=== PATIENT | male | born 1975 | race Hispanic/Latino ===

== ENCOUNTER 2018-10-02 10:59 | Emergency (ER) | payer BC, OTHER ==
[2018-10-02] MEDS ORDERED: METHYLPREDNISOLONE 125 MG INJ ONE (11:41)
[2018-10-02] MEDS ORDERED: KETOROLAC 30 MG/ML INJ ONE (11:41)
[2018-10-02 11:49] LABS: Absolute Lymphocytes (CBC) 1.9 K/uL (0.7-4.9); Absolute Monocytes 0.6 K/uL (0.1-1.3); Absolute Neutrophil 5.4 K/uL (1.8-8.0); Basophils % 0.5 % (0-1.3); Eosinophils % 2.2 % (0-4.4); Hematocrit 48.1 % (39.6-49.0); Lymphocytes % 23.4 % (15.3-44.8); MPV 9.8 fL (7.6-11.3); Monocytes % 7.8 % (3.3-12.3); RBC Red Blood Cell Count 5.17 M/uL (4.33-5.43)
[2018-10-02 12:00] LABS: BUN Blood Urea Nitrogen 12 mg/dL (7-18); Bicarbonate 26 mmol/L (21-32); Glucose Level 160 mg/dL (74-106); Sodium Level 142 mmol/L (136-145); Uric Acid 4.8 mg/dL (3.5-7.2)
--- NOTE | 2018-10-02 12:06 | RAD REPORT ---
EXAM DESCRIPTION: RAD - Knee Right 3 View - 10/02/2018 11:55 am CLINICAL HISTORY: Nontraumatic right knee pain COMPARISON: None. FINDINGS: No fracture, dislocation or periosteal reaction.No measurable joint effusion. Hardware is in place from prior ACL repair. A small 4 mm intra-articular loose body is seen along the tibial spin e. Several bone densities are present along the anterior margin of the tibial tubercle. This is most likely related to chronic patella tendon injury. Mild congestion or edema is seen in the subcutaneous fatty tissues. No air or foreign body in the sof t tissues. IMPRESSION: No acute bone or joint finding identifiable. Degenerative and postsurgical changes are present including intra-articular loose body and patella te ndon calcinosis.
[2018-10-02] MEDS ORDERED: LIDOCAINE 1% MPF 5 ML VIAL ONE (12:53)
--- NOTE | 2018-10-02 13:16 | ER ---
Nurse's Notes [facility] Name: Amadeo Dubois Age: 43 yrs Sex: Male : 1975 Arrival Date: 10/02/2018 Time: 11:01 Bed 18 Private MD: Diagnosis: Gout;Pain in right knee Presentation: 10/02 11:01 Presenting complaint: Patient states: "I woke up with knee pain on Friday". Pt c/o aa5 right knee pain. Pt also reports intermittent swelling to right knee. Transition of care: patient was not received from another setting of care. Onset of symptoms was September 2018. Risk Assessment: Do you want to hurt yourself or someone else? Patient reports no desire to harm self or others. Initial Sepsis Screen: Does the patient meet any 2 criteria? No. Patient's initial sepsis screen is negative. Does the patient have a suspected source of infection? No. Patient's initial sepsis screen is negative. Care prior to arrival: None. 11:01 Method Of Arrival: Ambulatory aa5 11:01 Acuity: ARIK 3 aa5 Historical: - Allergies: 11:05 No Known Allergies; aa5 - Home Meds: 11:05 None [Active]; aa5 - PMHx: 11:05 None; aa5 - PSHx: 11:05 right knee- ACL; gastric bypass; aa5 - Immunization history:: Flu vaccine status is unknown. - Social history:: Smoking status: Patient uses tobacco products, smokes one-half pack cigarettes per day. - Ebola Screening: : No symptoms or risks identified at this time. Screenin:34 Abuse screen: Denies threats or abuse. Nutritional screening: No deficits noted. em Tuberculosis screening: No symptoms or risk factors identified. Fall Risk None identified. Assessment: 11:40 General: Appears in no apparent distress. comfortable, Behavior is calm, cooperative, em Denies fever, right knee swollen, red and hot to touch. Pain: Complains of pain in right knee Pain currently is 10 out of 10 on a pain scale. Pain began 2-3 days ago. Neuro: Level of Consciousness is awake, alert, obeys commands, Oriented to person, place, time, situation. Cardiovascular: Capillary refill < 3 seconds Patient's skin is warm and dry. Respiratory: Airway is patent Respiratory effort is even, unlabored, Respiratory pattern is regular, symmetrical. Derm: Skin is intact, Skin is pink, warm \\T\\ dry. Musculoskeletal: Range of motion: intact in all extremities. 12:45 Reassessment: Patient appears in no apparent distress at this time. Patient and/or em family updated on plan of care and expected duration. Pain level reassessed. Patient is alert, oriented x 3, equal unlabored respirations, skin warm/dry/pink. rates pain 4/10 Patient states feeling better. Patient states symptoms have improved. 13:49 Reassessment: Patient appears in no apparent distress at this time. Patient and/or em family updated on plan of care and expected duration. Pain level reassessed. Patient is alert, oriented x 3, equal unlabored respirations, skin warm/dry/pink. Patient states feeling better. Patient states symptoms have improved. Vital Signs: 11:06 BP 124 / 65; Pulse 99; Resp 18 S; Temp 98.3(TE); Pulse Ox 99% on R/A; Pain 10/10; aa5 12:18 BP 100 / 64; Pulse 74; Resp 17; Temp 97.9(TE); Pulse Ox 98% on R/A; mh5 ED Course: 11:01 Patient arrived in ED. aa5 11:02 Jose Arredondo MD is Attending Physician. kdr 11:02 Arm band placed on. aa5 11:05 Triage completed. aa5 11:14 Kenny Franco LVN is Primary Nurse. em 11:34 Patient has correct armband on for positive identification. Placed in gown. Bed in low em position. Call light in reach. Adult w/ patient. Pulse ox on. NIBP on. 11:40 Initial lab(s) drawn, by me, sent to lab. Inserted saline lock: 22 gauge in right em antecubital area, using aseptic technique. Blood collected. 11:55 X-ray completed. Portable x-ray completed in exam room. Patient tolerated procedure sw well. 11:56 Knee Right 3 View XRAY In Process Unspecified. EDMS 13:20 Removed 0 ml's of fluid Set up for procedure. Performed by Jose Arredondo MD Dressed em with band aid, Patient tolerated well. 13:47 IV discontinued, intact, bleeding controlled, No redness/swelling at site. Pressure em dressing applied. Administered Medications: 11:56 Drug: TORadol - Ketorolac 15 mg Route: IVP; Site: right antecubital; hb 12:45 Follow up: Response: No adverse reaction; Pain is decreased em 11:56 Drug: SOLU-Medrol 125 mg Route: IVP; Site: right antecubital; hb 12:45 Follow up: Response: No adverse reaction; Pain is decreased em Outcome: 13:15 Discharge ordered by MD. kdr 13:47 Discharged to home ambulatory, with family. em 13:47 Condition: good 13:47 Discharge instructions given to patient, Instructed on discharge instructions, follow up and referral plans. medication usage, Demonstrated understanding of instructions, follow-up care, medications, Prescriptions given X 2. 13:49 Patient left the ED. em Signatures: Dispatcher [employer] EDMS Jose Arredondo MD MD kdr Munoz, Edgar, BLENDING TECHNICIAN BLENDING TECHNICIAN em Farhana Weston RN RN aa5 Livier Flowers Heather, RN RN hb Martinez, Maria [facility] Corrections: (The following items were deleted from the chart) 11:05 11:01 Presenting complaint: Patient states: "I woke up with knee pain on Friday" aa5 aa5 11:20 11:01 Presenting complaint: Patient states: "I woke up with knee pain on Friday". Pt aa5 c/o right knee pain. Pt also reports intermittent swelling to right knee. aa5 11: 11:01 Acuity: ARIK 4 aa5 aa5
--- NOTE | 2018-10-02 13:16 | EDPHYS ---
Physician Documentation [facility] Name: Amadeo Dubois Age: 43 yrs Sex: Male : 1975 Arrival Date: 10/02/2018 Time: 11:01 Bed 18 Private MD: ED Physician Jose Arredondo HPI: 10/02 13:31 This 43 yrs old Male presents to ER via Ambulatory with complaints of Knee kdr Pain. 12:16 The patient presents with decreased range of motion, pain, that is acute, swelling, kdr tenderness. The complaints affect the lateral aspect of right knee, medial aspect of right knee and right knee. Context: The problem was sustained at home, Went to bed Friday night without any problems and when he awoke Friday, he had pain in the right knee. Onset: The symptoms/episode began/occurred gradually, Friday. Modifying factors: The symptoms are alleviated by remaining still, the symptoms are aggravated by movement, weight bearing, bending knee. Associated signs and symptoms: The patient has no apparent associated signs or symptoms. Treatment prior to arrival includes: no previous treatment, over the counter medications, Tylenol. Severity of symptoms: At their worst the symptoms were mild, moderate, just prior to arrival, in the emergency department the symptoms are unchanged. The patient has not experienced similar symptoms in the past. The patient has not recently seen a physician. Historical: - Allergies: 11:05 No Known Allergies; aa5 - Home Meds: 11:05 None [Active]; aa5 - PMHx: 11:05 None; aa5 - PSHx: 11:05 right knee- ACL; gastric bypass; aa5 - Immunization history:: Flu vaccine status is unknown. - Social history:: Smoking status: Patient uses tobacco products, smokes one-half pack cigarettes per day. - Ebola Screening: : No symptoms or risks identified at this time. ROS: 12:16 Constitutional: Negative for fever, chills, and weight loss, Eyes: Negative for injury, kdr pain, redness, and discharge, Abdomen/GI: Negative for abdominal pain, nausea, vomiting, diarrhea, and constipation, : Negative for injury, bleeding, discharge, and swelling, Skin: Negative for injury, rash, and discoloration, Neuro: Negative for headache, weakness, numbness, tingling, and seizure activity. Psych: Negative for depression, anxiety, suicide ideation, homicidal ideation, and hallucinations, Allergy/Immunology: Negative for hives, rash, and allergies. 12:16 MS/extremity: Positive for decreased range of motion, erythema, pain, swelling, tenderness, warmth, of the lateral aspect of right knee, medial aspect of right knee and right knee, Negative for injury or acute deformity, abrasion, bite, contusion, deformity, laceration, paresthesias, puncture, rash, tingling. Exam: 12:16 Constitutional: This is a well developed, well nourished patient who is awake, alert, kdr and in no acute distress. Head/Face: Normocephalic, atraumatic. Eyes: Pupils equal round and reactive to light, extra-ocular motions intact. Lids and lashes normal. Conjunctiva and sclera are non-icteric and not injected. Cornea within normal limits. Periorbital areas with no swelling, redness, or edema. Neck: Trachea midline, no thyromegaly or masses palpated, and no cervical lymphadenopathy. Supple, full range of motion without nuchal rigidity, or vertebral point tenderness. No Meningismus. Chest/axilla: Normal chest wall appearance and motion. Nontender with no deformity. No lesions are appreciated. Cardiovascular: Regular rate and rhythm with a normal S1 and S2. No gallops, murmurs, or rubs. Normal PMI, no JVD. No pulse deficits. Back: No spinal tenderness. No costovertebral tenderness. Full range of motion. 12:16 Musculoskeletal/extremity: Extremities: grossly normal except: noted in the lateral aspect of right knee, medial aspect of right knee and right knee: decreased ROM, pain, swelling, tenderness. Vital Signs: 11:06 BP 124 / 65; Pulse 99; Resp 18 S; Temp 98.3(TE); Pulse Ox 99% on R/A; Pain 10/10; aa5 12:18 BP 100 / 64; Pulse 74; Resp 17; Temp 97.9(TE); Pulse Ox 98% on R/A; mh5 MDM: 12:35 Data reviewed: vital signs, nurses notes, lab test result(s), radiologic studies. kdr Counseling: I had a detailed discussion with the patient and/or guardian regarding: the historical points, exam findings, and any diagnostic results supporting the discharge/admit diagnosis, lab results, radiology results, the need for outpatient follow up. ED course: The patient WBC = 8 and ESR = 1; unlikely to be septic joint however, the patient has no personal physician to follow-up with. Will tap joint to be certain that it is not septic. 13:15 Patient medically screened. [facility] 10/02 11:19 Order name: CBC with Diff; Complete Time: 12:30 [facility] 10/02 11:19 Order name: Chem 7; Complete Time: 12:08 [facility] 10/02 11:19 Order name: Uric Acid; Complete Time: 12:08 [facility] 10/02 11:19 Order name: ESR; Complete Time: 12:30 [facility] 10/02 11:19 Order name: Knee Right 3 View XRAY; Complete Time: 12:30 [facility] Administered Medications: 11:56 Drug: TORadol - Ketorolac 15 mg Route: IVP; Site: right antecubital; hb 12:45 Follow up: Response: No adverse reaction; Pain is decreased em 11:56 Drug: SOLU-Medrol 125 mg Route: IVP; Site: right antecubital; hb 12:45 Follow up: Response: No adverse reaction; Pain is decreased em Disposition: 10/02/18 13:15 Discharged to Home. Impression: Gout, Pain in right knee. - Condition is Stable. - Discharge Instructions: Gout, [id number], Knee Pain, [id number]-Foep. - Prescriptions for indomethacin 50 mg Oral capsule - take 1 capsule by ORAL route 3 times per day with food; 15 capsule. Prednisone 20 mg Oral Tablet - take 2 tablet by ORAL route once daily for 5 days; 10 tablet. - Medication Reconciliation Form, Thank You Letter, Work release form form. - Follow up: Private Physician; When: 2 - 3 days; Reason: If symptoms return, Further diagnostic work-up, Recheck today's complaints, Continuance of care, Re-evaluation by your physician. - Problem is new. - Symptoms have improved. Signatures: Dispatcher [employer] EDJose Shrestha MD MD [facility] Kenny Franco, RADIATION THERAPY TECHNICIAN RADIATION THERAPY TECHNICIAN Farhana Kaplan, RN RN aa5 Arin Garcia RN RN hb Corrections: (The following items were deleted from the chart) 13:49 13:15 10/02/2018 13:15 Discharged to Home. Impression: Gout; Pain in right knee. em Condition is Stable. Forms are Medication Reconciliation Form, Thank You Letter, Antibiotic Education, Prescription Opioid Use. Follow up: Private Physician; When: 2 - 3 days; Reason: If symptoms return, Further diagnostic work-up, Recheck today's complaints, Continuance of care, Re-evaluation by your physician. Problem is new. Symptoms have improved. kdr
[2018-10-02 13:59] VITALS: BP 100/64; TEMP 97.9; O2SAT 98
== END 2018-10-02 13:49 | disposition home or self-care (01) ==
LOC: ER 10:59
DX: M10.9 Gout, unspecified (principal); F17.210 Nicotine dependence, cigarettes, uncomplicated
CPT/HCPCS: 36415; 80048; 84550; 85025; 85652; 96374; 96375; 99284; J2930

== ENCOUNTER 2021-03-25 14:49 | Observation (INO) | payer BC ==
[2021-03-25] MEDS ORDERED: ASPIRIN 81 MG CHEWABLE TABLET ONE (15:34)
[2021-03-25] MEDS ORDERED: NITROGLYCERIN 0.4 MG/TAB SL ONE (15:34)
[2021-03-25 15:45] LABS: Hematocrit 51.9 % (39.6-49.0); Lymphocytes % 30.3 % (15.3-44.8); MPV 8.5 fL (7.6-11.3); Protime INR 1.01; RBC Red Blood Cell Count 5.61 M/uL (4.33-5.43)
--- NOTE | 2021-03-25 15:53 | RAD REPORT ---
EXAM DESCRIPTION: RAD - Chest Single View - 03/25/2021 3:45 pm CLINICAL HISTORY: CHEST PAIN COMPARISON: February 2013 TECHNIQUE: AP portable chest image was obtained 03/25/2021 3:45 pm . FINDINGS: No focal lung parenchymal process. Interstitial pattern is not clearly different when adju sting for film technique and inspiratory differences. Heart and vasculature are normal. No measurable pleural effusion and no pneumothorax. No acute bony abnormality seen. No acute aortic findings suspe cted. IMPRESSION: No acute cardiopulmonary process. No significant change from comparison study.
[2021-03-25 16:00] LABS: ALT/SGPT 48 U/L (12-78); AST/SGOT 21 U/L (15-37); Albumin 3.9 g/dL (3.4-5.0); BUN Blood Urea Nitrogen 9 mg/dL (7-18); Bicarbonate 26 mmol/L (21-32); Bilirubin Direct 0.3 mg/dL (0-0.2); Glucose Level 201 mg/dL (74-106); Magnesium 2.3 mg/dL (1.8-2.4); Potassium 3.9 mmol/L (3.5-5.1); Sodium Level 140 mmol/L (136-145)
[2021-03-25 16:04] LABS: Alkaline Phosphatase 105 U/L (45-117); NT PRO-BNP 31 pg/mL (<125); Protein, Total 7.5 g/dL (6.4-8.2); Troponin (Emerg Dept Use Only) < 0.02 ng/mL (0.0-0.045)
--- NOTE | 2021-03-25 16:57 | EDPHYS ---
Physician Documentation [facility] Name: Amadeo Dubois Age: 46 yrs Sex: Male : 1975 Arrival Date: 03/25/2021 Time: 14:50 Bed 7 Private MD: ED Physician Madi Vu HPI: 03/25 15:27 This 46 yrs old Male presents to ER via Ambulatory with complaints of Chest pm1 Pain. 15:27 The patient or guardian reports chest pain that is located primarily in the mid-sternal pm1 area. Onset: today, at 12:00. The pain radiates to the left shoulder. Associated signs and symptoms: Pertinent positives: vomiting, x1, Pertinent negatives: abdominal pain, cough, dizziness, headache, nausea, palpitations, shortness of breath. The chest pain is described as Tightness. Duration: The patient or guardian reports a single episode, that is still ongoing. Modifying factors: The symptoms are alleviated by nothing. the symptoms are aggravated by nothing. Severity of pain: in the emergency department the pain is a 8 / 10. The patient has not experienced similar symptoms in the past. The patient has not recently seen a physician. Historical: - Allergies: 15:03 No Known Allergies; vg1 - Home Meds: 15:03 None [Active]; vg1 - PMHx: 15:03 Hypertensive disorder; Diabetes mellitus; vg1 - PSHx: 15:03 Gastric bypass; vg1 - Immunization history:: Client reports having NOT received the Covid vaccine. - Social history:: Smoking status: Patient reports the use of cigarette tobacco products, smokes one-half pack cigarettes per day. ROS: 15:27 Constitutional: Negative for fever, chills, and weight loss. pm1 15:27 Respiratory: Negative for shortness of breath, cough, wheezing, and pleuritic chest pain. 15:27 Back: Negative for injury and pain, MS/Extremity: Negative for injury and deformity, Skin: Negative for injury, rash, and discoloration, Neuro: Negative for headache, weakness, numbness, tingling, and seizure. 15:27 Cardiovascular: Positive for chest pain, Negative for edema, palpitations. 15:27 Abdomen/GI: Positive for vomiting, x1, Negative for abdominal pain, diarrhea, constipation. 15:27 All other systems are negative. Exam: 15:27 Constitutional: This is a well developed, well nourished patient who is awake, alert, pm1 and in no acute distress. Head/Face: Normocephalic, atraumatic. 15:27 Back: No spinal tenderness. No costovertebral tenderness. Full range of motion. Skin: Warm, dry with normal turgor. Normal color with no rashes, no lesions, and no evidence of cellulitis. MS/ Extremity: Pulses equal, no cyanosis. Neurovascular intact. Full, normal range of motion. 15:27 Eyes: Exam is negative for acute changes, Extraocular movements: intact throughout, Sclera: no acute changes, icterus, is not appreciated. 15:27 ENT: Mouth: no acute changes, Lips: normal, moist, Oral mucosa: normal, pink and intact, moist. 15:27 Cardiovascular: Rate: normal, Rhythm: regular, Pulses: no pulse deficits are appreciated, Heart sounds: normal, normal S1and S2. 15:27 Respiratory: Exam negative for acute changes, respiratory distress, shortness of breath, Breath sounds: are clear throughout. 15:27 Abdomen/GI: Inspection: obese Palpation: abdomen is soft and non-tender, in all quadrants. 15:27 Neuro: Exam negative for acute changes, Orientation: is normal, Mentation: is normal, Motor: moves all fours. Vital Signs: 15:01 BP 136 / 83; Pulse 96; Resp 18; Temp 98.7; Pulse Ox 97% ; Weight 117.93 kg; Height 5 vg1 ft. 7 in. (170.18 cm); Pain 8/10; 15:45 BP 115 / 85; Pulse 95; Resp 15; Pulse Ox 96% ; jl7 16:30 BP 107 / 66; Pulse 86; Resp 15; Pulse Ox 96% ; jl7 17:15 BP 111 / 70; Pulse 71; Resp 15; Pulse Ox 98% ; Pain 3/10; jl7 18:22 BP 120 / 84; Pulse 73; Resp 17; Pulse Ox 98% ; jl7 20:57 BP 114 / 75; Pulse 72; Resp 18; Pulse Ox 98% on R/A; Pain 0/10; tw5 15:01 Body Mass Index 40.72 (117.93 kg, 170.18 cm) vg1 MDM: 15:18 Patient medically screened. pm1 15:27 Data reviewed: vital signs. Data interpreted: Pulse oximetry: on room air is 97 %. pm1 Interpretation: normal. 16:48 Counseling: I had a detailed discussion with the patient and/or guardian regarding: the pm1 historical points, exam findings, and any diagnostic results supporting the discharge/admit diagnosis, lab results, radiology results, the need for further work-up and treatment in the hospital. 16:55 Physician consultation: Amadeo Prather regarding admission, and will see patient. pm1 03/25 15:18 Order name: Basic Metabolic Panel; Complete Time: 16:09 pm1 03/25 15:18 Order name: CBC with Diff; Complete Time: 15:55 pm1 03/25 15:18 Order name: LFT's; Complete Time: 16:09 pm1 03/25 15:18 Order name: Magnesium; Complete Time: 16:09 pm1 03/25 15:18 Order name: NT PRO-BNP; Complete Time: 16:09 pm1 03/25 15:18 Order name: PT-INR; Complete Time: 15:48 pm1 03/25 15:18 Order name: Troponin (emerg Dept Use Only); Complete Time: 16:09 pm1 03/25 15:18 Order name: XRAY Chest (1 view); Complete Time: 15:55 pm1 03/25 15:18 Order name: EKG; Complete Time: 15:20 pm1 03/25 15:27 Order name: COVID-19 (Coronavirus) Document "Date of Onset" if Symptomatic pm1 03/25 16:34 Order name: SARS-COV-2 RT PCR; Complete Time: 17:43 EDMS 03/25 15:18 Order name: Cardiac monitoring; Complete Time: 15:22 pm1 03/25 15:18 Order name: EKG - Nurse/Tech; Complete Time: 15:22 pm1 03/25 15:18 Order name: IV Saline Lock; Complete Time: 15:35 pm1 03/25 15:18 Order name: Labs collected and sent; Complete Time: 15:35 pm1 03/25 15:18 Order name: O2 Per Protocol; Complete Time: 15:22 pm1 03/25 15:18 Order name: O2 Sat Monitoring; Complete Time: 15:22 pm1 Administered Medications: 15:42 Drug: Nitroglycerin 0.4 mg Route: Sublingual; jl7 15:48 Drug: Aspirin Chewable Tablet 324 mg Route: PO; jl7 18:23 Follow up: Response: No adverse reaction jl7 16:24 Drug: Nitroglycerin 0.4 mg Route: Sublingual; jl7 16:30 Drug: Nitroglycerin 0.4 mg Route: Sublingual; jl7 16:35 Follow up: Response: Pain is decreased jl7 18:25 Follow up: Response: No adverse reaction jl7 Disposition Summary: 03/25/21 16:56 Hospitalization Ordered Hospitalization Status: Observation pm1 Provider: Amadeo Prather pm1 Location: Telemetry/MedSurg (observation) pm1 Condition: Stable pm1 Problem: new pm1 Symptoms: have improved pm1 Bed/Room Type: Standard pm1 Room Assignment: 218(03/25/21 19:58) cg Diagnosis - Chest pain, unspecified pm1 Forms: - Medication Reconciliation Form pm1 - SBAR form pm1 Addendum: 03/28/2021 22:45 Co-signature as Attending Physician, Madi Vu MD I agree with the assessment and r n plan of care. Attestation: The patient's history, exam findings, diagnostics, and a summary of any interventions or procedures was reviewed in detail with Daniele Torres NP. Signatures: Dispatcher [employer] [facility] Madi Vu MD MD rn Garcia, Cindy, RN RN cg Marinas, Patrick, NP STRIPPER CUTTER MACHINE pm1 Ravin Louise RN RN jl7 Erika Woo RN RN vg1 Corrections: (The following items were deleted from the chart) 03/25 16:34 15:28 CORONAVIRUS ordered. [facility] 19:58 16:56 pm1 cg
--- NOTE | 2021-03-25 16:57 | ER ---
Nurse's Notes [facility] Name: Amadeo Dubois Age: 46 yrs Sex: Male : 1975 Arrival Date: 03/25/2021 Time: 14:50 Bed 7 Private MD: Diagnosis: Chest pain, unspecified Presentation: 03/25 15:01 Chief complaint: Patient states: Vomited this morning around 0600 and around noon time vg1 mid sternal chest pain began that radiates to left arm, and states left arm 'feels numb'. Denies headache, shortness of breath or difficulty breathing. States cough x 2 weeks. Coronavirus screen: Vaccine status: Patient reports being unvaccinated. Client denies travel out of the [place] in the last 14 days. Ebola Screen: Patient negative for fever greater than or equal to 101.5 degrees Fahrenheit, and additional compatible Ebola Virus Disease symptoms. Initial Sepsis Screen: Does the patient meet any 2 criteria? No. Patient's initial sepsis screen is negative. Does the patient have a suspected source of infection? No. Patient's initial sepsis screen is negative. Risk Assessment: Do you want to hurt yourself or someone else? Patient reports no desire to harm self or others. Onset of symptoms was March 25, 2021. 15:01 Method Of Arrival: Ambulatory vg1 15:01 Acuity: ARIK 2 vg1 Triage Assessment: 15:03 General: Appears in no apparent distress. uncomfortable, Behavior is anxious, crying. vg1 Pain: Complains of pain in mid-sternal area Pain radiates to left arm. Cardiovascular: Patient's skin is warm and dry. Historical: - Allergies: 15:03 No Known Allergies; vg1 - Home Meds: 15:03 None [Active]; vg1 - PMHx: 15:03 Hypertensive disorder; Diabetes mellitus; vg1 - PSHx: 15:03 Gastric bypass; vg1 - Immunization history:: Client reports having NOT received the Covid vaccine. - Social history:: Smoking status: Patient reports the use of cigarette tobacco products, smokes one-half pack cigarettes per day. Screenin:45 Abuse screen: Denies threats or abuse. Denies injuries from another. Nutritional jl7 screening: No deficits noted. Tuberculosis screening: No symptoms or risk factors identified. Fall Risk IV access (20 points). Total Rubio Fall Scale indicates No Risk (0-24 pts). Assessment: 15:45 General: Appears in no apparent distress. uncomfortable, Behavior is calm, cooperative, jl7 appropriate for age. Pain: Complains of pain in chest and mid-sternal area Pain currently is 8 out of 10 on a pain scale. Quality of pain is described as "Tight" Pain began 3 hours ago. Is continuous. Neuro: Level of Consciousness is awake, alert, obeys commands, Oriented to person, place, time, situation. Cardiovascular: Patient's skin is warm and dry. Rhythm is regular. Respiratory: Airway is patent Respiratory effort is even, unlabored, Respiratory pattern is regular, symmetrical. Derm: Skin is pink, warm \\T\\ dry. 16:35 Reassessment: Pt reports decreased pain, rated 2-3/10 at this time, ERP notified. jl7 18:00 Reassessment: Patient appears in no apparent distress at this time. No changes from jl7 previously documented assessment. Patient and/or family updated on plan of care and expected duration. Pain level reassessed. Patient is alert, oriented x 3, equal unlabored respirations, skin warm/dry/pink. Vital Signs: 15:01 BP 136 / 83; Pulse 96; Resp 18; Temp 98.7; Pulse Ox 97% ; Weight 117.93 kg; Height 5 vg1 ft. 7 in. (170.18 cm); Pain 8/10; 15:45 BP 115 / 85; Pulse 95; Resp 15; Pulse Ox 96% ; jl7 16:30 BP 107 / 66; Pulse 86; Resp 15; Pulse Ox 96% ; jl7 17:15 BP 111 / 70; Pulse 71; Resp 15; Pulse Ox 98% ; Pain 3/10; jl7 18:22 BP 120 / 84; Pulse 73; Resp 17; Pulse Ox 98% ; jl7 20:57 BP 114 / 75; Pulse 72; Resp 18; Pulse Ox 98% on R/A; Pain 0/10; tw5 15:01 Body Mass Index 40.72 (117.93 kg, 170.18 cm) vg1 ED Course: 14:50 Patient arrived in ED. as 15:03 Triage completed. vg1 15:03 Arm band placed on. EKG completed in triage. Results shown to MD. vg1 15:18 Daniele Torres NP is PHCP. pm1 15:18 Madi Vu MD is Attending Physician. pm1 15:30 Ravin Louise RN is Primary Nurse. jl7 15:34 Initial lab(s) drawn, by me, sent to lab. Inserted saline lock: 20 gauge in right lt3 antecubital area, using aseptic technique. 15:45 XRAY Chest (1 view) In Process Unspecified. EDMS 15:45 Patient has correct armband on for positive identification. Placed in gown. Bed in low jl7 position. Call light in reach. Side rails up X 1. child monitor on. Pulse ox on. NIBP on. 15:45 Patient maintains SpO2 saturation greater than 95% on room air. jl7 16:20 COVID swab sent to lab. lt3 16:24 COVID-19 (Coronavirus) Document "Date of Onset" if Symptomatic Sent. lt3 16:56 Amadeo Prather is Hospitalizing Provider. pm1 19:45 Primary Nurse role handed off by Ravin Louise RN cs9 20:57 No provider procedures requiring assistance completed. Patient admitted, IV remains in tw5 place. Administered Medications: 15:42 Drug: Nitroglycerin 0.4 mg Route: Sublingual; jl7 15:48 Drug: Aspirin Chewable Tablet 324 mg Route: PO; jl7 18:23 Follow up: Response: No adverse reaction jl7 16:24 Drug: Nitroglycerin 0.4 mg Route: Sublingual; jl7 16:30 Drug: Nitroglycerin 0.4 mg Route: Sublingual; jl7 16:35 Follow up: Response: Pain is decreased jl7 18:25 Follow up: Response: No adverse reaction jl7 Outcome: 16:56 Decision to Hospitalize by Provider. pm1 20:56 Admitted to Med/surg room 218, with chart, Report called to Report called to [facility] tw5 20:57 Condition: good tw5 20:57 Instructed on the need for admit. 21:07 Patient left the ED. as6 Signatures: Dispatcher [employer] EDMS Isi Hightower as Daniele Torres NP SOLE LEVELER pm1 Ravin Louise RN RN jl7 Erika Woo RN RN 1 Kiana Mallory tw5 Neva Cash cs9 Gurwinder Lauren RN RN as6 Delmy Salas lt3
--- NOTE | 2021-03-25 17:07 | P.HP ---
Certification for Inpatient Patient admitted to: Observation With expected LOS: <2 Midnights Practitioner: I am a practitioner with admitting privileges, knowledge of patient current condition, hospital course, and medical plan of care. Services: Services provided to patient in accordance with Admission requirements found in Title 42 Section 412.3 of the Code of Federal Regulations Patient History Date of Service: 03/25/21 Reason for admission: Chest pain History of Present Illness: 46-year-old gentleman with a prior history of diabetes and hypertension, status post gastric bypass surgery presented to the emergency department with a complaint of chest pain of onset today. Patient described left anterior chest pain, about 8/10 in maximum intensity, radiating to involve the left arm, partially relieved with nitroglycerin, no known aggravating factors. Patient stated his diabetes and hypertension resolved after gastric bypass surgery and he is no more taking any medications. Initial troponin in the ED is negative. EKG showed no ischemic changes. Chest x-ray shows no acute disease. Patient with typical chest pain. He is placed in observation for ACS rule out. Allergies No Known Allergies Allergy (Unverified 01/20/13 10:16) Home Medications: Insulin Regular, Human [Humulin R] 10 unit IJ ACHS 01/20/13 Levothyroid 175 mcg PO AC 01/20/13 Lisinopril 10 mg PO AC 01/20/13 Metformin HCl [Metformin HCl ER] 1,000 mg PO BID 01/20/13 Spaxyn 10 mg PO DAILY 01/20/13 Victoza 18mg/3ml 1.8 mg SQ BEDTIME 01/20/13 - Past Medical/Surgical History Diabetic: Yes -: HTN -: DM -: Hypothyroid -: Lymphedema -: Vascular Sx: Multiple bilateral vein closures - Family History Father -: Diabetes Mother -: Cancer - Social History Smoking Status: Current some day smoker Alcohol use: Yes CD- Drugs: No Place of Residence: Home Review of Systems Other: Except as documented, all other systems reviewed and negative. Physical Examination - Physical Exam General: Alert, In no apparent distress, Oriented x3 HEENT: PERRLA, Mucous membr. moist/pink, EOMI, Sclerae nonicteric Neck: JVD not distended Respiratory: Clear to auscultation bilaterally, Normal air movement Cardiovascular: No edema, Regular rate/rhythm, Normal S1 S2, No murmurs Capillary refill: >2 Seconds Gastrointestinal: Normal bowel sounds, Soft and benign, Non-distended, No tenderness Musculoskeletal: No swelling, No tenderness Integumentary: No rashes, No erythema Neurological: Normal speech, Normal strength at 5/5 x4 extr, Cranial nerves 3-12 intact - Studies Laboratory Data (last 24 hrs) 03/25/21 15:30: PT 11.6, INR 1.01 03/25/21 15:30: WBC 6.60, Hgb 17.5, Hct 51.9 H, Plt Count 227 03/25/21 15:30: Sodium 140, Potassium 3.9, BUN 9, Creatinine 1.02, Glucose 201 H, Magnesium 2.3, Total Bilirubin 1.0, AST 21, ALT 48, Alkaline Phosphatase 105 Assessment and Plan - Problems (Diagnosis) (1) Chest pain Current Visit: Yes Status: Acute (2) Obesity Current Visit: Yes Status: Acute (3) Hyperglycemia Current Visit: Yes Status: Acute - Plan Placed under observation. Trend troponin Serial EKG Start aspirin and Plavix and Lipitor. Patient is currently normotensive. Start low-dose metoprolol. Will order nuclear stress test to be done in a.m. pending troponin result. Cardiology consult. - Advance Directives Does patient have a Living Will: No Does patient have a Durable POA for Healthcare: No
[2021-03-25 21:23] VITALS: O2SAT 98
[2021-03-25] MEDS ORDERED: ATORVASTATIN 40 MG TAB PO SCH (21:55)
[2021-03-25] MEDS ORDERED: NITROGLYCERIN 0.4 MG/TAB SL PRN (21:55)
[2021-03-25] MEDS: INSULIN -REGULAR HUMAN 50 UNIT/0.5 ML ML SQ SCH (21:55)
[2021-03-25] MEDS ORDERED: METOPROLOL TAR 50 MG TAB PO SCH (21:55)
[2021-03-25] MEDS ORDERED: MORPHINE 2 MG/ML SYR IV PRN (22:00)
[2021-03-25 22:48] LABS: HDL Cholesterol 35 mg/dL (40-60); LDL Cholesterol, Calculated 69 (<130); Troponin I < 0.02 ng/mL (0.0-0.045)
[2021-03-26 00:19] VITALS: BMI 39.7
[2021-03-26 02:36] LABS: Absolute Lymphocytes (CBC) 2.6 K/uL (0.7-4.9); Basophils % 1.1 % (0-1.3); Hematocrit 46.7 % (39.6-49.0); Lymphocytes % 32.6 % (15.3-44.8); MPV 8.7 fL (7.6-11.3); RBC Red Blood Cell Count 5.07 M/uL (4.33-5.43)
[2021-03-26 02:42] LABS: Potassium 4.3 mmol/L (3.5-5.1)
[2021-03-26] MEDS: INSULIN -REGULAR HUMAN 50 UNIT/0.5 ML ML SQ SCH ×2 (07:30→11:30)
[2021-03-26] MEDS ORDERED: ASPIRIN EC 81 MG TAB PO SCH (09:00)
[2021-03-26] MEDS ORDERED: ENOXAPARIN 40 MG/0.4 ML SQ SCH (09:00)
[2021-03-26] MEDS ORDERED: REGADENOSON 0.4 MG/5 ML SYR IV ONE (10:03)
--- NOTE | 2021-03-26 14:24 | P.DS ---
Admission Date: 03/25/21 Discharge Date: 03/26/21 Disposition: ROUTINE DISCHARGE Discharge Condition: FAIR Reason for Admission: Chest pain Consultations: Cardiology - Problems (1) Chest pain Current Visit: Yes Status: Acute (2) Obesity Current Visit: Yes Status: Acute (3) Hyperglycemia Current Visit: Yes Status: Acute Brief History of Present Illness: 46-year-old gentleman with a prior history of diabetes and hypertension, status post gastric bypass surgery presented to the emergency department with a complaint of chest pain of onset today. Patient described left anterior chest pain, about 8/10 in maximum intensity, radiating to involve the left arm, partially relieved with nitroglycerin, no known aggravating factors. Patient stated his diabetes and hypertension resolved after gastric bypass surgery and he is no more taking any medications. Initial troponin in the ED is negative. EKG showed no ischemic changes. Chest x-ray shows no acute disease. Patient with typical chest pain. He is placed in observation for ACS rule out. Hospital Course: Troponin trended negative. Patient was asymptomatic during the hospital stay. Lipid profile within normal limits. Nuclear stress tests was ordered but I was informed there is no nurse to perform the test. ACS has been ruled out. Patient seen by cardiology-Dr. Moulton and and cleared for discharge Patient will follow with Dr. Moulton for arrangement for outpatient stress test. He is prescribed aspirin. His blood pressure was soft and did not tolerate metoprolol. Vital Signs/Physical Exam: Temp Pulse Resp BP Pulse Ox 97.4 F 62 18 116/75 97 03/26/21 12:00 03/26/21 12:00 03/26/21 12:00 03/26/21 12:00 03/26/21 12:00 General: Alert, In no apparent distress, Oriented x3 HEENT: Mucous membr. moist/pink Neck: JVD not distended Respiratory: Clear to auscultation bilaterally, Normal air movement Cardiovascular: No edema, Regular rate/rhythm, Normal S1 S2 Gastrointestinal: Normal bowel sounds, Soft and benign, Non-distended, No tenderness Musculoskeletal: No swelling Integumentary: No rashes Neurological: Normal speech, Normal strength at 5/5 x4 extr Laboratory Data at Discharge: WBC 7.90 K/uL (4.3-10.9) D 03/26/21 02:20 Hgb 15.9 g/dL (13.6-17.9) 03/26/21 02:20 Hct 46.7 % (39.6-49.0) 03/26/21 02:20 Plt Count 203 K/uL (152-406) 03/26/21 02:20 PT 11.6 SECONDS (9.5-12.5) 03/25/21 15:30 INR 1.01 03/25/21 15:30 Sodium 141 mmol/L (136-145) 03/26/21 02:20 Potassium 4.3 mmol/L (3.5-5.1) 03/26/21 02:20 BUN 13 mg/dL (7-18) 03/26/21 02:20 Creatinine 1.04 mg/dL (0.55-1.3) 03/26/21 02:20 Glucose 280 mg/dL (74-106) H 03/26/21 02:20 Magnesium 2.3 mg/dL (1.8-2.4) 03/25/21 15:30 Total Bilirubin 1.0 mg/dL (0.2-1.0) 03/25/21 15:30 AST 21 U/L (15-37) 03/25/21 15:30 ALT 48 U/L (12-78) 03/25/21 15:30 Alkaline Phosphatase 105 U/L (45-117) 03/25/21 15:30 Troponin I < 0.02 ng/mL (0.0-0.045) 03/26/21 02:20 Triglycerides 137 mg/dL (<150) 03/25/21 22:19 Cholesterol 131 mg/dL (<200) 03/25/21 22:19 HDL Cholesterol 35 mg/dL (40-60) L 03/25/21 22:19 Cholesterol/HDL Ratio 3.74 03/25/21 22:19 Home Medications: Aspirin [Aspirin EC] 81 mg PO DAILY #30 tablet. 03/26/21 New Medications: Aspirin [Aspirin EC] 81 mg PO DAILY #30 tablet. Diet: ADA Activity: Ad raymond Followup: Nabeel Moulton MD [ACTIVE - CAN ADMIT] - 1 Week (For arrangement for outpatient stress test.) Shar Jasso MD [Primary Care Provider] - 1-2 Weeks
--- NOTE | 2021-03-26 16:36 | CON ---
Date of Consultation: 03/26/2021 Reason For Consultation: Chest pain. History Of Present Illness: A 46-year-old male, woke up with chest pain on the left side, radiated t o the left upper extremity, rated 8/10, not related to exertion, partially relieved with nitroglyceri n. Since admission, the patient has been chest pain free. No further episodes. Past Medical History: Diabetes, hypertension, hypothyroidism. Medications: Refer to reconciliation sheet for detailed list. Allergies: NO KNOWN DRUG ALLERGIES. Social History: He is a smoker, half pack per day. Does not drink or use any drugs. Family History: No premature coronary artery disease or cancer. Review of Systems: All systems reviewed and they were negative except for what mentioned in the HPI. Physical Examination: Vital Signs: Reviewed. Head and Neck: Pupils are equal, reactive to light. Intact eye movements. No JVD. No cervical lym phadenopathy. Neck: Supple. Thyroid is not enlarged. Lungs: Clear to auscultation bilaterally. No rhonchi, rales, or crackles. No accessory muscle use. Heart: Regular rate and rhythm. No extra sounds. Abdomen: Soft, nontender. Bowel sounds positive. No organomegaly. No masses or hernia. No rigidi ty or rebound. Extremities: No clubbing or cyanosis. Intact pulses. Skin: No rashes. Neurologic: Alert, awake, oriented x3. No acute focal deficits appreciated. Investigations: Hemoglobin 15.6, creatinine 1.02. Troponins x3 are negative. EKG without acute spe cific abnormalities. Assessment And Recommendations: Chest pain, has atypical features, lasted for a whole day. Negative troponins. Echo was limited windows; however, EF appears to be normal. From Cardiology standpoint, the patient can be released and to schedule exercise nuclear stress test as an outpatient to follow up with me in 1-2 weeks post discharge to report back to emergency room with any chest pain. Start b cesar aspirin 81 mg daily. SR/MODL Voice ID: [id number] Report ID: [id number]
[2021-03-26 18:33] VITALS: BP 100/66; TEMP 97.6
--- NOTE | 2021-03-27 07:31 | ECHO ---
HEIGHT: 5 ft 7 in WEIGHT: 253 lb 12.8 oz DATE OF STUDY: 03/26/[address]: toya chau 2-DIMENSIONAL: YES M.MODE: YES DOPPLER: YES COLOR FLOW: YES TDS: YES PORTABLE: NO DEFINITY: NO BUBBLE STUDY: NO DIAGNOSIS: CHEST PAIN, HYPERTENSION CARDIAC HISTORY: CATHERIZATION: NO SURGERY: NO PROSTHETIC VALVE: NO PACEMAKER: NO MEASUREMENTS (cm) DIASTOLIC (NORMALS) SYSTOLIC (NORMALS) IVSd 1.0 (0.6-1.2) LA Diam 2.9 (1.9-4.0) LVEF 50% LVIDd 4.2 (3.5-5.7) LVIDs 3.2 (2.0-3.5) %FS 25% LVPWd 1.0 (0.6-1.2) Ao Diam 2.9 (2.0-3.7) 2 DIMENSIONAL ASSESSMENT: RIGHT ATRIUM: LEFT ATRIUM: RIGHT VENTRICLE: LEFT VENTRICLE: TRICUSPID VALVE: MITRAL VALVE: PULMONIC VALVE: AORTIC VALVE: PERICARDIAL EFFUSION: AORTIC ROOT: LEFT VENTRICULAR WALL MOTION: DOPPLER/COLOR FLOW: COMMENTS: VERY POOR WINDOWS AND LIMITED EXAM. LEFT VENTRICULAR EJECTION FRACTION APPEARS NORMAL, CAN NOT EVALUATE WALL MOTION. TECHNOLOGIST: Paty MENESES
== END 2021-03-26 17:47 | disposition home or self-care (01) ==
LOC: ER 14:49 → ERHOLD 16:57 → 2ND 20:35
PROVIDERS: ADMIT Internal Medicine; ATTEND Internal Medicine
DX: R07.9 Chest pain, unspecified (principal); R73.9 Hyperglycemia, unspecified; E66.9 Obesity, unspecified; Z68.39 Body mass index [BMI] 39.0-39.9, adult; E03.9 Hypothyroidism, unspecified; F17.210 Nicotine dependence, cigarettes, uncomplicated; Z98.84 Bariatric surgery status; Z20.822 Contact with and (suspected) exposure to COVID-19
CPT/HCPCS: 93005; 93306; 85025 ×2; 80048 ×2; 36415; 83735; 85610; 80061; 82947; 80076; 84484 ×3; 83880; 71045; 99285; U0003; J1650; G0378 ×3; J2785

== ENCOUNTER 2023-08-27 19:20 | Emergency (ER) | payer BC ==
--- NOTE | 2023-08-27 21:11 | ER ---
Nurse's Notes [facility] Name: Amadeo Dubois Age: 48 yrs Sex: Male : 1975 Arrival Date: 08/27/2023 Time: 19:20 Bed 13 Private MD: Diagnosis: Paraphimosis Presentation: 08/26 19:36 Chief complaint: Patient states: Pt c/o swelling of his foreskin x 1 week. Pt denies tl4 urinary sxs or bleeding. +pain. Coronavirus screen: At this time, the client does not indicate any symptoms associated with coronavirus-19. Ebola Screen: No symptoms or risks identified at this time. Initial Sepsis Screen: Does the patient meet any 2 criteria? No. Patient's initial sepsis screen is negative. Does the patient have a suspected source of infection? No. Patient's initial sepsis screen is negative. Risk Assessment: Do you want to hurt yourself or someone else? Patient reports no desire to harm self or others. Onset of symptoms was August 20, 2023. 19:36 Method Of Arrival: Ambulatory tl4 19:36 Acuity: ARIK 3 tl4 Triage Assessment: 19:38 General: Appears in no apparent distress. Pain: Complains of pain in pelvis. EENT: No tl4 signs and/or symptoms were reported regarding the EENT system. Neuro: Level of Consciousness is awake, alert, obeys commands, Oriented to person, place, time, situation, Moves all extremities. Full function Gait is steady, Speech is normal. Cardiovascular: Capillary refill < 3 seconds Patient's skin is warm and dry. Respiratory: Airway is patent Respiratory effort is even, unlabored, Respiratory pattern is regular, symmetrical. GI: No signs and/or symptoms were reported involving the gastrointestinal system. : Reports swelling of foreskin of penis. Derm: No signs and/or symptoms reported regarding the dermatologic system. Musculoskeletal: No signs and/or symptoms reported regarding the musculoskeletal system. Historical: - Allergies: 19:38 No Known Allergies; tl4 - Home Meds: 19:38 None [Active]; tl4 - PMHx: 19:38 diabetes mellitus; Hypertensive disorder; tl4 - PSHx: 19:38 Gastric Bypass; tl4 - Immunization history:: Adult Immunizations unknown. - Infectious Disease History:: Denies. - Social history:: Smoking status: Patient reports the use of cigarette tobacco products, smokes one-half pack cigarettes per day. Screenin:36 [facility] ED Fall Risk Assessment (Adult) History of falling in the last 3 months, rv including since admission No falls in past 3 months (0 pts) Score/Fall Risk Level 0 - 2 = Low Risk Oriented to surroundings, Maintained a safe environment, Educated pt \T\ family on fall prevention, incl call for assistance when getting out of bed, Assessed \T\ reinforced patient's understanding of fall precautions. Abuse screen: Denies threats or abuse. Denies injuries from another. Nutritional screening: No deficits noted. Tuberculosis screening: No symptoms or risk factors identified. Assessment: 19:36 General: Appears uncomfortable, Behavior is calm, cooperative. Pain: Complains of pain rv in foreskin, genital. Neuro: Level of Consciousness is awake, alert, obeys commands, Oriented to person, place, time, situation. Cardiovascular: Capillary refill < 3 seconds Patient's skin is warm and dry. Respiratory: Airway is patent Respiratory effort is even, unlabored. GI: No signs and/or symptoms were reported involving the gastrointestinal system. : No signs and/or symptoms were reported regarding the genitourinary system. Derm: Skin is intact. Vital Signs: 19:36 BP 139 / 84; Pulse 102; Resp 16; Temp 99.1(O); Pulse Ox 97% on R/A; Weight 111.95 kg; tl4 Height 5 ft. 7 in. ; Pain 8/10; 19:48 BP 140 / 87; Pulse 96; Resp 16; Pulse Ox 96% on R/A; rv 20:55 BP 117 / 79; Pulse 84; Resp 16; Pulse Ox 96% ; rv 19:36 Body Mass Index 38.65 (111.95 kg, 170.18 cm) tl4 19:36 Pain Scale: Adult tl4 ED Course: 19:22 Patient arrived in ED. mr 19:32 Billy Hansen, KAREN is Primary Nurse. rv 19:34 Meri Valerio FNP-C is PHCP. kb 19:34 Blake Guerrero MD is Attending Physician. kb 19:36 Patient has correct armband on for positive identification. Client placed on continuous rv cardiac and pulse oximetry monitoring. NIBP monitoring applied. 19:36 No provider procedures requiring assistance completed. rv 19:38 Triage completed. tl4 19:39 Arm band placed on right wrist. tl4 21:19 Patient did not have IV access during this emergency room visit. rv Administered Medications: 20:32 Drug: Cephalexin PO 500 mg PO once Route: PO; rv 21:20 Follow up: Response: No adverse reaction rv 20:32 Drug: [place] PO 10 mg-325 mg 1 tabs PO once Route: PO; rv 21:20 Follow up: Response: No adverse reaction rv 20:32 Drug: Ibuprofen PO 800 mg PO once Route: PO; rv 21:19 Follow up: Response: No adverse reaction rv Medication: 19:36 VIS not applicable for this client. rv Outcome: 21:11 Discharge ordered by . kb 21:19 Discharged to home ambulatory, with family, rv 21:19 Condition: good 21:19 Discharge instructions given to patient, Instructed on discharge instructions, follow up and referral plans. medication usage, Demonstrated understanding of instructions, follow-up care, medications, Prescriptions given X 3, 21:20 Patient left the ED. rv Signatures: Meri Valerio, NEWSPAPER DELIVERY COUNSELOR-C NEWSPAPER DELIVERY COUNSELOR-Kaela Pearson, Reg Reg mr Billy Hansen, RN RN rv Simón Serrano RN RN tl4
--- NOTE | 2023-08-27 21:11 | EDPHYS ---
Physician Documentation [facility] Name: Amadeo Dubois Age: 48 yrs Sex: Male : 1975 Arrival Date: 08/27/2023 Time: 19:20 Bed 13 Private MD: ED Physician Blake Guerrero HPI: 08/26 23:40 This 48 yrs old Male presents to ER via Ambulatory with complaints of Penile kb Problem. 23:40 Patient is a 48-year-old male who presents for paraphimosis that started one week ago. kb States his foreskin has been stuck and he hasn't been able to pull it foreward. Denies urinary symptoms. States it has become more painful . Historical: - Allergies: 19:38 No Known Allergies; tl4 - Home Meds: 19:38 None [Active]; tl4 - PMHx: 19:38 diabetes mellitus; Hypertensive disorder; tl4 - PSHx: 19:38 Gastric Bypass; tl4 - Immunization history:: Adult Immunizations unknown. - Infectious Disease History:: Denies. - Social history:: Smoking status: Patient reports the use of cigarette tobacco products, smokes one-half pack cigarettes per day. ROS: 08/27 00:06 Constitutional: As per HPI kb Exam: 00:06 Constitutional: This is a well developed, well nourished patient who is awake, alert, kb and in no acute distress. Head/Face: Normocephalic, atraumatic. ENT: Moist Mucous membranes Cardiovascular: Regular rate Respiratory: Respirations even and unlabored. No increased work of breathing. Talking in full sentences Abdomen/GI: Soft, non-tender. No distention Skin: Warm, dry with normal turgor. Normal color. MS/ Extremity: Pulses equal, no cyanosis. Neurovascular intact. Full, normal range of motion. Neuro: Awake and alert, GCS 15, oriented to person, place, time, and situation. Moves all extremities. Normal gait. Vital Signs: 08/26 19:36 BP 139 / 84; Pulse 102; Resp 16; Temp 99.1(O); Pulse Ox 97% on R/A; Weight 111.95 kg; tl4 Height 5 ft. 7 in. ; Pain 8/10; 19:48 BP 140 / 87; Pulse 96; Resp 16; Pulse Ox 96% on R/A; rv 20:55 BP 117 / 79; Pulse 84; Resp 16; Pulse Ox 96% ; rv 19:36 Body Mass Index 38.65 (111.95 kg, 170.18 cm) tl4 19:36 Pain Scale: Adult tl4 MDM: 19:34 Patient medically screened. kb 23:39 Differential diagnosis: Paraphimosis, balanitis. Data reviewed: vital signs, nurses kb notes. Counseling: I had a detailed discussion with the patient and/or guardian regarding the historical points, exam findings, and any diagnostic results supporting the discharge/admit diagnosis, the need for outpatient follow up, a urologist, to return to the emergency department if symptoms worsen or persist or if there are any questions or concerns that arise at home. ED course: Paraphimosis reduced by Dr. Glass. Pt tolerated well. Administered Medications: 20:32 Drug: Cephalexin PO 500 mg PO once Route: PO; rv 21:20 Follow up: Response: No adverse reaction rv 20:32 Drug: [place]en[place] PO 10 mg-325 mg 1 tabs PO once Route: PO; rv 21:20 Follow up: Response: No adverse reaction rv 20:32 Drug: Ibuprofen PO 800 mg PO once Route: PO; rv 21:19 Follow up: Response: No adverse reaction rv Disposition: 08/27 19:58 Co-signature as Attending Physician, Blake Guerrero MD I reviewed the patient's care rt provided by the Advanced Practice Provider and agree with the diagnosis and treatment plan. Disposition Summary: 08/27/23 21:11 Discharge Ordered Notes: Location: Home kb Condition: Stable Diagnosis - Paraphimosis kb Followup: kb - With: Emergency Department - When: As needed - Reason: Worsening of condition Followup: kb - With: Private Physician - When: 2 - 3 days - Reason: Recheck today's complaints, Continuance of care, Re-evaluation by your physician Discharge Instructions: - Discharge Summary Sheet kb - Paraphimosis kb Forms: - Medication Reconciliation Form kb - Antibiotic Education kb - Prescription Opioid Use kb - Patient Portal Instructions kb - Leadership Thank You Letter kb Prescriptions: - Cephalexin 500 mg Oral Capsule - take 1 capsule ORAL route every 12 hours for 10 days; 20 capsule; Refills: 0, kb Product Selection Permitted - Clotrimazole 1 % Topical Cream - Apply to affected area 1 application TOPICAL route every 12 hours; 15 gram; kb Refills: 0, Product Selection Permitted - Tramadol 50 mg Oral Tablet - take 1 tablet ORAL route every 8 hours as needed; 12 tablet; Refills: 0, kb Product Selection Permitted Signatures: Meri Valerio, NICKI MTZP-Billy Lyons, RN RN rv Blake Guerrero MD MD rt Simón Serrano RN RN tl4 Corrections: (The following items were deleted from the chart) 08/26 21:11 21:11 Phimosis kb kb 08/27 00:07 08/26 23:40 Patient is a 48-year-old male who presents for paraphimosis that started kb one week ago. . kb
[2023-08-27 21:35] VITALS: BP 117/79; TEMP 99.1; O2SAT 96
== END 2023-08-27 21:20 ==
LOC: ER 19:20
DX: N47.2 Paraphimosis (principal); F17.210 Nicotine dependence, cigarettes, uncomplicated